=== PATIENT | male | born 1975 | race Caucasian/White ===

== ENCOUNTER → 2018-04-09 | Outpatient (CLI) | payer BC ==
--- NOTE | 2018-04-09 17:11 | CT ---
EXAM DESCRIPTION: Sinuses: Computed Tomography. CLINICAL HISTORY: CHRONIC ETHMOIDAL SINUSES, DEVIATED NASAL SEPTUM, POLYP NASAL CAV COMPARISON: None Available. TECHNIQUE: Spiral, axial 2.5 mm scans through the nasal sinuses without contrast. Coronal and sagittal 2.0 reconstructions. Axial 2.5 mm reconstructions with sinus algorithm. Total Exam DLP: 288.54 mGy-cm. This exam was performed according to our departmental CT dose-optimization program which includes automated exposure control, adjustment of the mA and/or kV according to patient size and/or use of iterative reconstruction technique; to reduce radiation dose to as low as reasonably achievable (ALARA). FINDINGS: Soft tissue mass with mixed density in the anterior right maxillary antrum with anterior posterior and superior with soft tissue predominantly along the medial anterior and base. Complete obstruction of the ostiomeatal unit. Questionable bone erosion around the medial ostium with similar density tissue obstructing the superior and mid right nasal passage and completely obstructing the posterior right nasal passage. Ostiomeatal unit is obstructed and may be partially eroded. This tissue is also occupying almost all of the right ethmoid air cells except posterior. Left maxillary antrum is well aerated and ostiomeatal unit is patent. Minimal soft tissue density in the right ethmoid air cells. Left sphenoid nasal ostia and sphenoid sinus is clear with the right sphenoid sinus partially obstructed anteriorly along with the sphenoid nasal ostia. Right frontal air cells are hypoplastic and the left frontal air cells are well aerated. Turbinate mucosal hypertrophy in the left nasal passageway with small chiki bullosa. Minimal thickening along the medial nasal septum with anterior left side spur and anterior right septal deviation. No paras soft tissue mass in the right orbit or right intraorbital air. Included mastoid air cells are well aerated. IMPRESSION: 1. Possibly invasive soft tissue mass/inflammatory process involving most of the right maxillary antrum, and eroding through the ostium into the right nasal passageway and right ethmoid air cells. Also obstructing the right sphenoid nasal ostia with minimal soft tissue in the anterior right sphenoid sinus. Complete obstruction of the posterior right nasal passageway and almost complete obstruction anterior. Variable density in this tissue and aggressive nature suggests a fungal process. No well-defined mass is visible. 2. Small chiki bullosa in the left nasal passageway and mucosal thickening along the septum and septal spur. No definite erosion through the septum. Anterior septum deviates to the right. Left ostiomeatal unit is patent. Electronically signed by: Armand Ash MD 04/09/2018 5:09 PM CDT
== END ==
LOC: CT 09:11
PROVIDERS: ATTEND Otolaryngology Otolaryngology/Facial Plastic Surgery
DX: J32.2 Chronic ethmoidal sinusitis (principal); J34.2 Deviated nasal septum; J33.0 Polyp of nasal cavity

== ENCOUNTER 2019-03-12 07:39 | Emergency (ER) | payer BC ==
[2019-03-12] MEDS ORDERED: MONTELUKAST 10 MG TAB PO ONE (07:41)
[2019-03-12] MEDS ORDERED: diphenhydrAMINE HCL 25 MG CAP ONE (07:41)
[2019-03-12] MEDS ORDERED: predniSONE 20 MG TAB PO ONE (07:41)
[2019-03-12] MEDS ORDERED: diphenhydrAMINE HCL 25 MG CAP PO ONE (07:42)
[2019-03-12] MEDS ORDERED: DOXYCYCLINE HYCLATE CAP 100 MG CAP PO ONE (09:32)
--- NOTE | 2019-03-12 10:10 | ED.PDOC ---
History of Present Illness - General Chief Complaint: Allergic Reaction Stated Complaint: Allergic reaction to Cipro Time Seen by Provider: 03/12/19 07:41 Source: patient Exam Limitations: no limitations - History of Present Illness Initial Comments: The patient is a 43-year-old male presenting to the emergency room secondary to what appears to be an allergic reaction to ciprofloxacin. he took his first dose for urinary tract infections thia morning and started to develop a significant rash with some nauseawithin an hour. he had one syncopal episode. No chest pain or shortness of breath. No swelling of the airway. He did have hives and redness over his body. The actual reaction appears to be subsiding by the time he arrives here. He still has some diffuse hives. Blood pressure is okay. No evidence of any respiratory distress. He does have some mild facial swelling. He is pleasant and cooperative. Timing/Duration: 1 hour Severity: severe Improving Factors: nothing Worsening Factors: nothing Associated Symptoms: denies symptoms Allergies/Adverse Reactions: Allergies Ciprofloxacin Allergy (Verified 03/12/19 08:01) Penicillins Allergy (Verified 03/12/19 08:01) Home Medications: Ambulatory Orders Fluticasone Propionate (Nasal) [Fluticasone Propionate] 50 mcg BNAS DAILY 03/12/19 Metformin HCl 500 mg PO BID 03/12/19 Review of Systems - Review of Systems Constitutional: States: malaise EENTM: States: nose congestion Respiratory: States: no symptoms reported Cardiology: States: syncope Gastrointestinal/Abdominal: States: nausea - resolved by now Genitourinary: States: no symptoms reported Musculoskeletal: States: no symptoms reported Skin: States: see HPI Neurological: States: see HPI All other Systems: No Change from Baseline Past Medical History (General) - Patient Medical History Hx Stroke: No Hx of COPD: No Hx Cardiac Disorders: No Hx Hypertension: No Hx Diabetes: Yes Surgical History: other - Vaccination History Hx Tetanus, Diphtheria Vaccination: No Hx Influenza Vaccination: No Hx Pneumococcal Vaccination: No - Social History Hx Tobacco Use: Yes Hx Alcohol Use: Yes - not current Hx Substance Use: No Hx Substance Use Treatment: No Hx Depression: No - Female History Patient is a Female of Child Bearing Age (10 -59 yrs old): No Patient : No Family Medical History - Family History Mother Hx Family Diabetes: Yes Father Hx Family Diabetes: Yes Physical Exam - Physical Exam General Appearance: Alert, No apparent distress Eye Exam: bilateral normal Ears, Nose, Throat: hearing grossly normal, normal ENT inspection Neck: full range of motion, supple Respiratory: lungs clear, normal breath sounds, no respiratory distress, no accessory muscle use Cardiovascular/Chest: normal peripheral pulses, regular rate, rhythm, no edema Peripheral Pulses: radial,right: 2+, radial,left: 2+ Gastrointestinal/Abdominal: non tender, soft Rectal Exam: deferred Back Exam: no CVA tenderness, no vertebral tenderness Extremity: normal range of motion, non-tender, normal inspection, no pedal edema, normal capillary refill 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 He has been dosed with Benadryl, Zantac, Singulair, and prednisone. He appears to be doing well at this point. He needs to discontinue the ciprofloxacin and he will be changed over to doxycycline. He needs to keep Benadryl with him in case of any future reactions and he will also be written for an EpiPen for any severe reaction in the future. His blood pressures are low normal but I suspect this is actually normal for him. He should keep follow-up with his primary care doctor later in the week. ER warnings were given for any worsening. - Results/Orders Results/Orders: 03/12/19 07:41 Telemetry .CONTINUOUS Laboratory Results - last 24 hr 03/12/19 03/12/19 03/12/19 07:48 07:48 07:48 WBC 7.8 RBC 5.18 Hgb 15.6 Hct 47.9 MCV 92.4 MCH 30.0 MCHC 32.5 L RDW 13.6 Plt Count 205 MPV 8.7 Absolute Neuts (auto) 4.00 Absolute Lymphs (auto) 2.60 Absolute Monos (auto) 0.90 H Absolute Eos (auto) 0.20 Absolute Basos (auto) 0.10 Neutrophils % 51.2 Lymphocytes % 34.1 Monocytes % 11.9 H Eosinophils % 2.0 Basophils % 0.8 Sodium 141 Potassium 4.0 Chloride 107 Carbon Dioxide 25 Anion Gap 13.0 BUN 24 H Creatinine 0.87 BUN/Creatinine Ratio 27.6 H Random Glucose 179 H Serum Osmolality 289.8 Lactic Acid Calcium 9.0 Total Bilirubin 0.8 AST 16 ALT 15 Alkaline Phosphatase 52 Creatine Kinase 101 CK-MB (CK-2) 2.4 CK-MB (CK-2) % Not Reportable Troponin I < 0.02 B-Natriuretic Peptide 8.7 Serum Total Protein 7.0 Albumin 4.2 Globulin 2.8 Albumin/Globulin Ratio 1.5 Urine Color Urine Appearance Urine pH Ur Specific [place] Urine Protein Urine Glucose (UA) Urine Ketones Urine Blood Urine Nitrite Urine Bilirubin Urine Urobilinogen Ur Leukocyte Esterase Urine RBC Urine WBC Ur Epithelial Cells Calcium Oxalate Crystal Urine Bacteria 03/12/19 03/12/19 07:48 09:35 WBC RBC Hgb Hct MCV MCH MCHC RDW Plt Count MPV Absolute Neuts (auto) Absolute Lymphs (auto) Absolute Monos (auto) Absolute Eos (auto) Absolute Basos (auto) Neutrophils % Lymphocytes % Monocytes % Eosinophils % Basophils % Sodium Potassium Chloride Carbon Dioxide Anion Gap BUN Creatinine BUN/Creatinine Ratio Random Glucose Serum Osmolality Lactic Acid 1.1 Calcium Total Bilirubin AST ALT Alkaline Phosphatase Creatine Kinase CK-MB (CK-2) CK-MB (CK-2) % Troponin I B-Natriuretic Peptide Serum Total Protein Albumin Globulin Albumin/Globulin Ratio Urine Color Yellow Urine Appearance Sl cloudy Urine pH 5.5 Ur Specific [place] >= 1.030 Urine Protein Trace Urine Glucose (UA) Negative Urine Ketones 15 H Urine Blood Trace-intact H Urine Nitrite Negative Urine Bilirubin Small H Urine Urobilinogen 0.2 Ur Leukocyte Esterase Negative Urine RBC 0-1 Urine WBC 3-5 H Ur Epithelial Cells 0 Calcium Oxalate Crystal 1+ Urine Bacteria 0 Departure - Departure Clinical Impression: Drug allergy Disposition: Discharge to Home or Self Care Condition: Fair Departure Forms: ED Discharge - Pt. Copy, Patient Portal Self Enrollment Instructions: Drug Allergy Diet: regular diet Activity: increase activity as tolerated Referrals: Norman Bowser MD [Primary Care Provider] - 1-2 Weeks Home Medications: Ambulatory Orders Fluticasone Propionate (Nasal) [Fluticasone Propionate] 50 mcg BNAS DAILY 03/12/19 Metformin HCl 500 mg PO BID 03/12/19 Additional Instructions: the patient's a 43-year-old male presenting with an allergic reaction due to ciprofloxacin. He has been dosed with Benadryl, Zantac, Singulair, and prednisone. He appears to be doing well at this point. He needs to discontinue the ciprofloxacin and he will be changed over to doxycycline. He needs to keep Benadryl with him in case of any future reactions and he will also be written for an EpiPen for any severe reaction in the future. His blood pressures are low normal but I suspect this is actually normal for him. He should keep follow-up with his primary care doctor later in the week. ER warnings were given for any worsening.
[2019-03-12 10:24] VITALS: BP 100/56; TEMP 97; O2SAT 98
== END 2019-03-12 10:23 | disposition home or self-care (01) ==
LOC: ER 07:39
DX: L50.0 Allergic urticaria (principal); T36.8X5A Adverse effect of other systemic antibiotics, initial encounter; R55 Syncope and collapse; R11.0 Nausea; E11.9 Type 2 diabetes mellitus without complications; Z87.891 Personal history of nicotine dependence; Z79.84 Long term (current) use of oral hypoglycemic drugs; Z79.899 Other long term (current) drug therapy; Z88.0 Allergy status to penicillin
CPT/HCPCS: 36415; 80053; 81001; 82550; 82553; 83605; 83880; 84484; 85025; J7512; Q0163

== ENCOUNTER → 2019-11-10 | Outpatient (CLI) | payer BC | LOC: GMA MATASK 10:36 | PROVIDERS: ATTEND Family Medicine | DX: R53.83 Other fatigue (principal); E11.9 Type 2 diabetes mellitus without complications ==